=== PATIENT | male | born 1965 | race Hispanic/Latino ===

== ENCOUNTER 2022-11-12 08:34 | Emergency (ER) | payer OTHER ==
[~2022-11-12] VITALS: Ht 175.3 cm; Wt 99.8 kg
[2022-11-12] MEDS ORDERED: FAMOTIDINE 20MG VIAL IV ONE (09:00)
[2022-11-12] MEDS ORDERED: PROPOFOL 10 MG/ML 20ML VIAL IV SCH (09:30)
[2022-11-12] MEDS ORDERED: KETOROLAC 30MG VIAL (30MG/ML) IVP ONE (09:30)
[2022-11-12] MEDS ORDERED: PROPOFOL 10 MG/ML 20ML VIAL IV ONE (09:31)
[2022-11-12 09:36] LABS: BASOPHILS % (AUTO) 0.1 % (0.0-5.0); EOSINOPHILS % (AUTO) 0.1 % (0.0-8.0); HEMATOCRIT 45.4 % (42-54); MEAN CORPUSCULAR HEMOGLOBIN 27.2 pg (27.0-33.0); MEAN CORPUSCULAR VOLUME 82.2 fL (79-99); MONOCYTES % (AUTO) 13.9 % (3.0-13.0); NEUTROPHILS % (AUTO) 77.6 % (40.0-77.0); PLATELET COUNT (AUTO) 232 K/uL (130-400); RED BLOOD CELL COUNT(AUTO) 5.52 MIL/uL (4.50-6.20); RED CELL DISTRIBUTION WIDTH 12.6 % (11.0-15.5)
[2022-11-12] MEDS: PROPOFOL 10 MG/ML 20ML VIAL IV SCH ×2 (09:42→10:12)
[2022-11-12 09:49] LABS: POTASSIUM 3.7 mmol/L (3.5-5.1)
[2022-11-12 09:50] LABS: INR 0.93 (0.85-1.15)
[2022-11-12 09:52] LABS: PARTIAL THROMBOPLASTIN TIME 27.6 SEC (26.3-35.5)
[2022-11-12 09:55] LABS: ALBUMIN 3.8 g/dL (3.5-5.0); TOTAL PROTEIN, SERUM 7.4 g/dL (6.0-8.3)
[2022-11-12 10:26] VITALS: BP 154/90
[2022-11-12] MEDS ORDERED: IBUP-1493 PO (10:44)
== END 2022-11-12 11:05 ==
LOC: EDH 08:34
DX: S43.005A Unspecified dislocation of left shoulder joint, initial encounter (principal); Y93.89 Activity, other specified; Y92.89 Other specified places as the place of occurrence of the external cause; Y99.8 Other external cause status; Y09 Assault by unspecified means
CPT/HCPCS: 99285; 70450; 23650; 96374; 96375; 80053; 85025; 85610; 85730; 36415; 73030; 72125; 70486; 73020; J3490; J2704; J1885